=== PATIENT | male | born 1990 | race Two or more races ===

== ENCOUNTER 2022-01-09 03:24 | Emergency (ER) | payer MEDICAID, OTHER ==
[~2022-01-09] VITALS: Ht 172.7 cm; Wt 113.6 kg
[2022-01-09] MEDS ORDERED: LIDOCAINE 5% TRANSDERMAL PATCH TD ONE (03:45)
[2022-01-09] MEDS ORDERED: KETOROLAC TROMETHAMINE 30 MG/ML VIAL IM ONE (03:45)
[2022-01-09] MEDS ORDERED: CYCLOBENZAPRINE HCL 10 MG TABLET PO ONE (03:45)
[2022-01-09] MEDS ORDERED: CYCL-448 PO (04:29)
[2022-01-09] MEDS ORDERED: IBUP-2070 PO (04:29)
[2022-01-09 05:13] VITALS: BP 132/81
== END 2022-01-09 05:24 | disposition home or self-care (01) ==
LOC: EMS 03:27
DX: R09.1 Pleurisy (principal); F12.90 Cannabis use, unspecified, uncomplicated; F15.10 Other stimulant abuse, uncomplicated; F14.90 Cocaine use, unspecified, uncomplicated
CPT/HCPCS: 99283; 71045; 96372; J1885

== ENCOUNTER 2025-04-11 09:54 | Emergency (ER) | payer BC, OTHER ==
[~2025-04-11] VITALS: Ht 172.7 cm; Wt 99.1 kg
[~2025-04-11 09:54] MED LIST: CYCL-448 PO; IBUP-1492 PO
[2025-04-11 09:56] VITALS: TEMP 97.1
[2025-04-11] MEDS ORDERED: AMPH20CA PO (10:05)
[2025-04-11 10:25] LABS: APPEARANCE,URINE HAZY (CLEAR); GLUCOSE, URINE (UA) NEGATIVE (NEGATIVE); LEUKOCYTE ESTERASE ,URINE NEGATIVE (NEGATIVE); NITRATE,URINE NEGATIVE (NEGATIVE); OCCULT BLOOD,URINE NEGATIVE (NEGATIVE); SPECIFIC GRAVITIY, URINE 1.019 (1.003-1.030)
[2025-04-11 10:38] LABS: AMPHET/METH SCREEN,URINE NEGATIVE (NEGATIVE); BARBITURATE SCREEN, URINE NEGATIVE (NEGATIVE); CANNABINOID SCREEN,URINE POSITIVE (NEGATIVE); COCAINE SCREEN,URINE NEGATIVE (NEGATIVE); METHADONE SCREEN, URINE NEGATIVE (NEGATIVE)
[2025-04-11 10:39] LABS: ALCOHOL, URINE DRUG SCREEN NEGATIVE (NEGATIVE)
[2025-04-11 10:43] LABS: PLATELET COUNT (AUTO) 234 K/uL (150-450); RED BLOOD CELL COUNT(AUTO) 4.85 MIL/uL (4.50-5.90); RED CELL DISTRIBUTION WIDTH 13.4 % (11.5-14.5); WHITE BLOOD COUNT (AUTO) 5.9 K/uL (4.5-11.0)
[2025-04-11 10:48] LABS: PH,URINE DRUG SCREEN 7.5 (5.0-8.0)
[2025-04-11 10:54] LABS: CALCIUM, TOTAL 8.8 mg/dL (8.8-10.5); CREATININE 0.81 mg/dL (0.60-1.30); GLOMERULAR FILTR. RATE CALC > 60 mL/min (>60); GLUCOSE,RANDOM 104 mg/dL (70-110); SODIUM SERUM 137 mmol/L (136-145); UREA NITROGEN, BLOOD 8 mg/dL (7-18)
[2025-04-11 10:59] LABS: ASPARTATE AMINOTRANSFERASE 26 U/L (15-37); TOTAL PROTEIN, SERUM 7.4 g/dL (6.4-8.2)
[2025-04-11] MEDS ORDERED: FAMO20 PO (11:11)
[2025-04-11] MEDS: PB/HYOSCY/ATR/SCOP/LIDO/MAALOX 55 ML BOTTLE PO ONE (11:18)
[2025-04-11 11:22] VITALS: BP 139/71; PULSE 74; RESP 18; O2SAT 99
== END 2025-04-11 11:22 | disposition home or self-care (01) ==
LOC: EMS 09:54
DX: K29.70 Gastritis, unspecified, without bleeding (principal); R10.11 Right upper quadrant pain; F10.10 Alcohol abuse, uncomplicated; F12.10 Cannabis abuse, uncomplicated; Z79.899 Other long term (current) drug therapy; Y90.9 Presence of alcohol in blood, level not specified
CPT/HCPCS: 80053; 80307; 81003; 83690; 85025; 99283